=== PATIENT | female | born 1960 | race Caucasian/White ===

== ENCOUNTER → 2017-03-24 | Outpatient (CLI) | payer OTHER | LOC: BMCIMAGING 12:57 | DX: Z12.31 Encounter for screening mammogram for malignant neoplasm of breast (principal); Z80.3 Family history of malignant neoplasm of breast | CPT/HCPCS: G0202 ==

== ENCOUNTER → 2018-03-05 | Outpatient (CLI) | payer OTHER | LOC: BMCIMAGING 15:15 | PROVIDERS: ATTEND Obstetrics & Gynecology Gynecology | DX: D25.9 Leiomyoma of uterus, unspecified (principal) ==

== ENCOUNTER 2018-03-15 10:47 | Emergency (ER) | payer OTHER ==
--- NOTE | 2018-03-15 10:52 | EDPHY ---
H & P Time Seen by Provider: 03/15/18 10:50 Constitutional: Initial Vital Signs Temperature (C) 36.6 C 03/15/18 10:52 Heart Rate 87 03/15/18 10:52 Respiratory Rate 18 03/15/18 10:52 Blood Pressure 124/74 H 03/15/18 10:52 O2 Sat (%) 95 03/15/18 10:52 O2 Delivery Mode [Procedural Non-Rebreather Mask 1st] O2 Delivery Mode [.Immediate Non-Rebreather Mask Pre-Procedure] O2 Delivery Mode Room Air O2 (L/minute) [Procedural 1st] 100 O2 (L/minute) [.Immediate Pre- 15 Procedure] Allergies/Adverse Reactions: No Known Allergies Allergy (Unverified 08/03/16 17:50) Home Medications: Medication Instructions Recorded Aspirin 81mg (*) 08/03/16 Bioidentical 08/03/16 Cyclobenzaprine 08/03/16 Diazepam [Valium 5 MG (*)] 5 mg PO TID PRN #15 tab 08/03/16 Estrogens,Conj 08/03/16 GABAPENTIN 08/03/16 Hydrocodone/APAP 5/325 [[place] 1 - 2 tab PO Q4H PRN #10 tab 08/03/16 5/325] Hydrocodone/APAP 5/325 [[place] 1 - 2 tab PO Q4H PRN #30 tab 08/03/16 5/325] Ondansetron HCl [Zofran] 4 mg PO Q4-6PRN PRN #10 tablet 08/03/16 TESTOSTERONE 08/03/16 Medical Decision Making - Diagnostics Imaging Results: Imaging Impressions Hip X-Ray 03/15/18 10:55 Impression: Dislocated right total hip arthroplasty. Wrist X-Ray 03/15/18 10:55 Impression: Acute angulated and displaced distal radial metaphyseal fracture. Hip X-Ray 03/15/18 12:13 Impression: Nicely reduced right total hip arthroplasty. Wrist X-Ray 03/15/18 12:21 Impression: Distal radius fracture reduced into near-anatomic alignment. Imaging: I viewed and interpreted images myself ED Course/Re-evaluation: CHIEF COMPLAINT: Possible hip dislocation, fall HISTORY OF PRESENT ILLNESS: The patient is a 57 y/o female with a history of right hip arthroplasty and prior dislocations arriving via EMS complaining of right hip dislocation and subsequent fall with right wrist injury. She describes standing in the kitchen and while twisting felt her right hip dislocate. This caused her to fall to the ground and land on her right wrist. She had pain at both sites. She denies striking her head, loss of consciousness , abdominal pain, chest pain, weakness, paresthesias, or other injuries. She received IN Fentanyl en route for pain. REVIEW OF SYSTEMS: A 10 point review of systems was performed and is negative with the exception of the elements mentioned in the history of present illness. PHYSICAL EXAM: HR, BP, O2 Sat, RR. Temp noted General Appearance: Alert, well hydrated, appropriate, and non-toxic appearing. Head: Atraumatic without scalp tenderness or obvious injury Eyes: Pupils equal, round, reactive to light and accommodation, EOMI, no trauma , no injection. Nose: Atraumatic, no rhinorrhea, clear. Throat: Mucus membranes moist. Neck: Supple Respiratory: No retractions, no distress, no wheezes, and no accessory muscle use. Lungs are clear to auscultation bilaterally. Cardiovascular: Regular rate and rhythm, no murmurs, rubs, or gallops. Right dorsalis pedis and right radial pulses intact. Good capillary refill all extremities. Gastrointestinal: Abdomen is soft, non-tender, non-distended, no masses, no rebound, no guarding, no peritoneal signs. Musculoskeletal: Right leg shortened with external rotation, right wrist splinted but visibly deformed. Skin is intact. Other extremities atraumatic. Neurological: Alert, appropriate, and interactive. The patient has non-focal cranial nerves, motor, sensory, and cerebellar exam. Skin: No rashes, good turgor, no nodules on palpation. PAST MEDICAL HISTORY: Hip dislocations PAST SURGICAL HISTORY: Right hip arthroplasty SOCIAL HISTORY: Dr. Mario Villareal, orthopedist in [place]. at bedside. DIAGNOSTICS/PROCEDURES/CRITICAL CARE TIME: Right wrist x-ray: Displaced and angulated distal radius fracture. Pelvis x-ray: Dislocated right hip arthroplasty Procedure: Conscious sedation. Indication: Hip dislocation reduction, wrist fracture reduction The patient is an appropriate candidate to tolerate procedural sedation. The patient's vitals signs and mental status are appropriate. The risks, benefits and alternatives of the sedation were discussed with the patient. The patient is ASA classification 1. The patient's Mallampati airway score was 1 and the patient did meet the 3-3-2 airway measurements. A time out was completed. The patient was sedated with 50mg IV Ketamine and 50mg IV Propofol. The patient was monitored with continuous pulse oximetry, traffic monitor specialist and end tidal CO2. There were no complications and no significant hypoxemia. I performed both the sedation and the procedure. The total time I spent at the bedside during the procedural sedation was 30 minutes. The patient was examined after the procedural sedation and has returned to their pre-sedation baseline with normal vital signs and a normal examination. Procedure: Reduction of Dislocated Hip Time-out completed immediately before the procedure. IV established. O2 administered. Placed on pulse oximeter and ETCO2 monitor. Neurovascular exam intact pre-procedure. Given 50mg IV Ketamine and 50mg IV Propofol. The right hip was reduced using traction-countertraction. Reassessed post-procedure. Neurovascular status intact with intact sciatic nerve function and lower extremity pulses. Exam indicated reduction. Confirmed reduction on X-ray. The procedure was performed by myself, Dr. Salamanca Procedure: Reduction of Angulated Displaced right radius fracture Time-out completed immediately before the procedure. IV established. O2 administered. Placed on pulse oximeter and ETCO2 monitor. Neurovascular exam intact pre-procedure. Given 50mg IV Ketamine and 50mg IV Propofol for pain and sedation. The right distal radius angulated and displaced fracture was reduced using traction and dorsal pressure. Reassessed post-procedure. Neurovascular status intact-Normal Motor and sensory exam. Exam indicated reduction. Confirmed reduction on X-ray. Splint applied by myself/tech. The procedure was performed by myself, Dr. Salamanca DIFFERENTIAL DIAGNOSIS: The differential diagnosis for the patient's injuries included but was not limited to fracture, ligamentous injury, contusion, muscular strain, and meniscus injury. MEDICAL DECISION MAKING: This is a 57 y/o female with a history of a right hip arthroplasty with prior dislocations who presents with an acute right hip dislocation secondary to twisting movement and right wrist deformity from the subsequent fall. She is externally rotated and shortened on the right leg and has deformity and tenderness to her right wrist on exam. She is neurovascularly intact with no signs of skin compromise or compartment syndrome. Plan for conscious sedation and reductions of both injuries. IV established. 1208: Patient consciously sedated with 50mg IV Ketamine, 50mg IV Propofol. Reduction of hip and wrist fracture performed successfully and confirmed on post -reduction films. Patient will be discharged with standard fracture/dislocation care and follow up instructions. She's been given a script for OxyIR and referred to orthopedics for follow up. Return precautions discussed. She is comfortable with this plan. - Data Points Medications Given: Discontinued Medications Fentanyl (Sublimaze) 100 mcg IVP EDNOW ONE Stop: 03/15/18 11:01 Last Admin: 03/15/18 11:05 Dose: 100 mcg Hydromorphone HCl (Dilaudid) 1 mg IVP EDNOW ONE Stop: 03/15/18 11:37 Last Admin: 03/15/18 11:38 Dose: 1 mg Ketamine HCl (Ketamine) 50 mg IVP EDNOW ONE Stop: 03/15/18 12:06 Last Admin: 03/15/18 12:08 Dose: 50 mg Ondansetron HCl (Zofran) 4 mg IVP EDNOW ONE Stop: 03/15/18 11:37 Last Admin: 03/15/18 11:05 Dose: 4 mg Propofol (Diprivan) 50 mg IVP EDNOW ONE Stop: 03/15/18 12:06 Last Admin: 03/15/18 12:08 Dose: 50 mg Departure - Departure Disposition: Home, Routine, Self-Care Clinical Impression: Hip dislocation, right Qualifiers: Encounter type: initial encounter Qualified Code(s): S73.004A - Unspecified dislocation of right hip, initial encounter Radius fracture Qualifiers: Encounter type: initial encounter Radius location: distal Fracture type: closed Fracture morphology: other fracture Laterality: right Qualified Code(s): S52.591A - Other fractures of lower end of right radius, initial encounter for closed fracture Condition: Good Instructions: Wrist Fracture in Adults (ED), Hip Dislocation (ED) Additional Instructions: 1. Keep splint clean, dry, and intact. Wear sling for comfort. Apply ice packs intermittently. 2. Use OxyIR as prescribed as needed for severe pain. 3. Follow up with orthopedist this week. I recommend calling tomorrow morning to schedule this appointment. 4. Avoid external/internal rotation of your hip and flexion beyond 90 degrees until you follow up with your orthopedist. 5. Return to the ED for severe pain, weakness or numbness in your extremities, or other worsening of condition. Referrals: Patient,NotPresent [Unknown] - As per Instructions Bryan Flannery MD [Medical Doctor] - As per Instructions Report Scribed for: Nicko Salamanca Report Scribed by: Snow Fisher Date of Report: 03/15/18 Time of Report: 10:48
[2018-03-15] MEDS ORDERED: fentaNYL 100 MCG/2 ML INJ IVP ONE (11:00)
[2018-03-15] MEDS ORDERED: fentaNYL 100 MCG/2 ML INJ ONE ×2 (11:02→11:29)
[2018-03-15] MEDS ORDERED: ONDANSETRON 4 MG/2 ML VIAL ONE ×2 (11:02→11:29)
[2018-03-15] MEDS ORDERED: HYDROmorphONE/DILAUDID 2 MG/ML INJ ONE (11:32)
[2018-03-15] MEDS ORDERED: HYDROmorphONE/DILAUDID 2 MG/ML INJ IVP ONE (11:36)
[2018-03-15] MEDS ORDERED: ONDANSETRON 4 MG/2 ML VIAL IVP ONE (11:36)
[2018-03-15] MEDS ORDERED: PROPOFOL 200 MG/20 ML VIAL ONE (11:43)
[2018-03-15] MEDS ORDERED: KETAMINE 500 MG/10 ML VIAL ONE (11:56)
[2018-03-15] MEDS ORDERED: KETAMINE 200 MG/20 ML VIAL IVP ONE (12:05)
[2018-03-15] MEDS ORDERED: PROPOFOL 200 MG/20 ML VIAL IVP ONE (12:05)
--- NOTE | 2018-03-15 12:35 | ASMTCAGE ---
CAGE Do you feel you ought to Answers: No cut down on your drinking or drug use? Do people annoy you by Answers: No criticizing your drinking or drug use? Do you feel guilty about Answers: No your drinking or drug use? Do you drink or use drugs Answers: No first thing in the morning ([employer])? Additional Comments CAGE completed secondary to LTA. Pt reports drinking occasionally, couple times/week, 1 glass or drink. She also occasionally uses edibles for pain. CAGE negative, pt denies need for resources at this time. Date Signed: 03/15/2018 11:46 AM Electronically Signed By:Shira Rock RN
[2018-03-15 14:13] VITALS: BP 119/67
== END 2018-03-15 14:15 | disposition home or self-care (01) ==
LOC: EDUNIT#
PROC: 0PSHXZZ Reposition Right Radius, External Approach (ICD-10-PCS; principal; 2018-03-15)
PROC: 0SS9XZZ Reposition Right Hip Joint, External Approach (ICD-10-PCS; principal; 2018-03-15)
DX: S52.591A Other fractures of lower end of right radius, initial encounter for closed fracture (principal); T84.020A Dislocation of internal right hip prosthesis, initial encounter; Z79.82 Long term (current) use of aspirin; W18.39XA Other fall on same level, initial encounter; Y82.8 Other medical devices associated with adverse incidents; Y92.010 Kitchen of single-family (private) house as the place of occurrence of the external cause
CPT/HCPCS: 96374; J1170; J2405; J2704; J3010; L3908

== ENCOUNTER → 2018-04-21 | Outpatient (CLI) | payer OTHER | LOC: BMCIMAGING 15:26 | PROVIDERS: ATTEND Physician Assistant | DX: Z12.31 Encounter for screening mammogram for malignant neoplasm of breast (principal); S52.591D Other fractures of lower end of right radius, subsequent encounter for closed fracture with routine healing ==

== ENCOUNTER → 2019-04-12 | Outpatient (CLI) | payer OTHER | LOC: FIMAGING 13:17 ==

== ENCOUNTER → 2019-04-30 | Outpatient (CLI) | payer OTHER | LOC: BMCIMAGING 13:13 ==